=== PATIENT | male | born 1965 | race Caucasian/White ===

== ENCOUNTER 2016-10-06 01:17 | Emergency (ER) | payer BC ==
[2016-10-06] MEDS ORDERED: Aspirin Low Dose CHEW TAB* 81 MG PO ONE (01:27)
--- NOTE | 2016-10-06 01:42 | ED ---
Shelby Wood Anna, scribed for Logan Baptiste MD on 10/06/16 at 0129 . HPI Chest Pain - HPI Summary HPI Summary: Patient is a 51 y/o male coming to [facility] presenting with intermittent CP that began 1.5 weeks ago. He describes the pain as of severity 2/10. The pain has been radiating to back and neck. Currently, he has back pain. Tonight, he woke up diaphoretic and felt uncomfortable. He has not had pain like this before. He tried Aspirin for the pain previously, though not today. Patient medications were reviewed this visit. - History of Current Complaint Hx Obtained From: Patient, Family/Renewals Specialist - accompanied by family Onset/Duration: Still Present Timing: Intermittent, Lasting Weeks Initial Severity: Moderate Current Severity: Moderate Pain Intensity: 2 Pain Scale Used: 0-10 Numeric - Allergy/Home Medications Allergies/Adverse Reactions: Allergies Allergy/AdvReac Type Severity Reaction Status Date / Time No Known Allergies Allergy Verified 10/13/12 16:51 PMH/Surg Hx/FS Hx/Imm Hx Endocrine/Hematology History: Denies: Hx Diabetes Cardiovascular History: Denies: Hx Hypertension, Hx Pacemaker/ICD History: Denies: Hx Dialysis, Hx Renal Disease Sensory History: Denies: Hx Hearing Aid Psychiatric History: Denies: Hx Panic Disorder - Cancer History Cancer Type, 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 - Surgical History Surgery Procedure, Year, and Place: APPENDECTOMY Infectious Disease History: Denies: Traveled Outside the [place] in Last 30 Days - Family History Known Family History: Negative: Other - Denies family Hx colon CA - Social History Alcohol Use: None Substance Use Type: Reports: None Smoking Status (MU): Never Smoked Tobacco Review of Systems Positive: Skin Diaphoresis Positive: Chest Pain Positive: Myalgia - back pain All Other Systems Reviewed And Are Negative: Yes Physical Exam Triage Information Reviewed: Yes Vital Signs On Initial Exam: Temp Pulse Resp BP Pulse Ox 98.4 F 73 16 177/99 97 10/06/16 01:25 10/06/16 01:25 10/06/16 01:25 10/06/16 01:25 10/06/16 01:25 Vital Signs Reviewed: Yes Appearance: Positive: Well-Appearing, No Pain Distress Skin: Positive: Warm Head/Face: Positive: Normal Head/Face Inspection Eyes: Positive: ELISA ENT: Positive: Hearing grossly normal Neck: Positive: Supple Respiratory/Lung Sounds: Positive: Clear to Auscultation, Breath Sounds Present Cardiovascular: Positive: RRR Abdomen Description: Positive: Nontender, Soft Bowel Sounds: Positive: Present Musculoskeletal: Positive: Strength/ROM Intact Neurological: Positive: Sensory/Motor Intact, Alert, Oriented to Person Place, Time Psychiatric: Positive: Affect/Mood Appropriate Diagnostics - Vital Signs Vital Signs Temp Pulse Resp BP Pulse Ox 10/06/16 01:25 98.4 F 73 16 177/99 97 - Laboratory Result Diagrams: 10/06/16 01:49 10/06/16 01:49 Lab Statement: Any lab studies that have been ordered have been reviewed, and results considered in the medical decision making process. - Radiology CXR Xray Interpretation: No Acute Changes Radiology Interpretation Completed By: ED Physician - IMPRESSION: Normal chest, no evidence for acute disease - EKG 0127 Cardiac Rate: NL - 75 bpm EKG Rhythm: Sinus Rhythm ST Segment: Normal Ectopy: None Re-Evaluation - Re-Evaluation First Eval Change: Improved - pain free, results d/w pt Chest Pain Course/Dx - Course Assessment/Plan: Patient is a 51 y/o male coming to [facility] presenting with intermittent CP that began 1.5 weeks ago. Patient was given Aspirin in the ED course. EKG reveals NSR at 75 bpm. CXR reveals normal chest with no evidence of acute disease. Laps reveal RBC of 5.90, BUN/Creatinine ratio of 26.1, glucose of 105, and initial troponin of 0.00. Repeat troponin was 0.01. Patient will be discharged home with follow up from his PCP. - Diagnoses Provider Diagnoses: Chest pain Discharge - Discharge Plan Condition: Stable Disposition: HOME Patient Education Materials: Chest Pain (ED) Referrals: Bobby Naik MD [Primary Care Provider] - Additional Instructions: Follow up with primary care physician within 48 hours. Return to the Emergency Department for new or worsening symptoms. The documentation as recorded by the Shelby hogan Anna accurately reflects the service I personally performed and the decisions made by , Logan Baptiste MD.
[2016-10-06 02:07] LABS: Hematocrit 50 % (42-52); Hemoglobin 16.8 g/dl (14.0-18.0); Mean Corpuscular HGB Conc 34 g/dl (31-36); Mean Corpuscular Hemoglobin 29 pg (27-31); Mean Corpuscular Volume 84 fL (80-94); Mean Platelet Volume 8 um3 (7.4-10.4); Red Cell Distribution Width 13 % (10.5-15); White Blood Count 9.8 10^3/ul (3.5-10.8)
[2016-10-06 02:12] LABS: Albumin 3.7 g/dL (3.2-5.2); BUN/Creatinine Ratio 26.1 (8-20); Calcium 8.7 mg/dL (8.6-10.3); EGFR African American 111.1 (>60); EGFR Non-African American 86.4 (>60); Globulin 3.2 g/dL (2-4); Total Bilirubin 0.3 mg/dL (0.2-1.0); Total Protein 6.9 g/dL (6.4-8.9)
[2016-10-06 02:53] LABS: Magnesium 2.3 mg/dL (1.9-2.7); Potassium 4.1 mmol/L (3.5-5.0)
[2016-10-06 05:24] VITALS: BP 118/76
--- NOTE | 2016-10-06 07:43 | RAD ---
HISTORY: Chest pain COMPARISONS: October 03, 2009 VIEWS: 2: Frontal dual-energy and lateral views of the chest. FINDINGS: CARDIOMEDIASTINAL SILHOUETTE: The cardiomediastinal silhouette is normal. CRISTELA: The cristela are normal. PLEURA: The costophrenic angles are sharp. No pleural abnormalities are noted. LUNG PARENCHYMA: There is hyperinflation with flattening of the diaphragm and expansion of the AP diameter of the chest. ABDOMEN: The upper abdomen is clear. There is no subphrenic gas. BONES AND SOFT TISSUES: No bone or soft tissue abnormalities are noted. OTHER: None. IMPRESSION: HYPERINFLATION, CONSISTENT WITH COPD. NO ACTIVE CARDIOPULMONARY DISEASE.
== END 2016-10-06 05:23 | disposition home or self-care (01) ==
LOC: ED 01:17
DX: R07.9 Chest pain, unspecified (principal)
CPT/HCPCS: 36415; 71020; 80053; 83605; 83735; 84484; 85025; 93005; 99283; A9270-GY